=== PATIENT | male | born 1975 | race Caucasian/White ===

== ENCOUNTER → 2021-07-10 | Outpatient (CLI) | payer BC ==
--- NOTE | 2021-07-10 16:58 | REP ---
INDICATION: LUMBAGO. COMPARISON: Comparison MRI study of the lumbar spine is from March 06, 2019. TECHNIQUE: Sagittal and axial T1 and T2-weighted scans are acquired in the usual fashion with and without fat saturation. Sequences include spin echo, turbo spin-echo, and STIR imaging sequences. FINDINGS: Lumbar vertebral body heights are preserved. Alignment is normal. There is no evidence of spondylolysis or spondylolisthesis. The tip of the conus medullaris is normal in position and appearance at T12-L1. No extra vertebral abnormality is appreciated. Axial and sagittal images taken at the L1-2 disc level demonstrate mild diffuse disc bulging with a central annulus tear of the posterior disc margin. There is subtle indentation of the ventral margin of the thecal sac. These findings are unchanged. No spinal stenosis or foraminal narrowing is seen at L1-2. At L2-3, there is a small to moderate size right paracentral focal disc protrusion which is a new finding compared with the 2019 prior study. This compresses the right ventral margin of the thecal sac. No foraminal narrowing is seen. No overall central canal stenosis is seen. At L3-L4, there is a right paracentral focal disc protrusion also noted. This is also a new finding compared to the 2019 study. There is mild thecal sac compression. Canal size is borderline. There is minimal ligamentum flavum and facet hypertrophy bilaterally. No neural foraminal encroachment is seen at L3-4. At L4-5, there is minimal central disc bulging. Facet and ligamentum flavum hypertrophy are present. No foraminal narrowing or central canal stenosis is seen. The findings at L4-5 are stable. At L5-S1, there is facet hypertrophy bilaterally. A small central focal disc protrusion is evident effacing the ventral epidural fat but not visibly compressing the cord. This is unchanged. No neural foraminal narrowing is seen. IMPRESSION: Degenerative spondylosis changes. There are new focal disc protrusions to the right at L2-3 and at L3-4. <Electronically signed by Alexi Shaikh > 07/10/21 [id number]
== END ==
LOC: M PLAIMG 15:28
PROVIDERS: ATTEND Physician Assistant
DX: M54.41 Lumbago with sciatica, right side (principal); M47.896 Other spondylosis, lumbar region; M51.26 Other intervertebral disc displacement, lumbar region

== ENCOUNTER 2024-05-04 10:43 | Emergency (ER) | payer SELFPAY ==
[~2024-05-04] VITALS: Ht 182.9 cm; Wt 67.3 kg
[2024-05-04] MEDS: NORCO, ANEXSIA 5/325MG TABLET (HYDROcodone/ACETAMINOPHEN) PO ONE (13:54)
[2024-05-04 14:29] LABS: BASO % 0.4 % (0.0-1.0); EOS # 0.1 10^3/uL (0.0-0.5); EOS % 2.7 % (0.0-3.0); HEMATOCRIT 45.8 % (42.0-52.0); HEMOGLOBIN 15.2 g/dl (13.5-17.5); LYMPH # 1.4 10^3/uL (1.5-5.0); LYMPH % 26.4 % (24.0-44.0); MEAN CORPUSCULAR HEMOGLOBIN 30.5 pg (27.0-33.0); MEAN CORPUSCULAR HGB CONC 33.2 g/dl (32.0-36.5); MEAN CORPUSCULAR VOLUME 91.8 fl (80.0-96.0); MONO # 0.5 10^3/uL (0.0-0.8); MONO % 10.3 % (2.0-8.0); NEUTROPHILS # 3.1 10^3/uL (1.5-8.5); PLATELET COUNT, AUTOMATED 220 10^3/uL (150-450); RED BLOOD COUNT 4.99 10^6/uL (4.30-6.10); WHITE BLOOD COUNT 5.2 10^3/uL (4.0-10.0)
[2024-05-04 14:35] LABS: ERYTHROCYTE SEDIMENTATION RATE 2 mm/hr (0-15)
[2024-05-04] MEDS: methylPREDNISolone 125MG 2ML VIAL IV ONE (14:46)
[2024-05-04 14:59] LABS: C REACTIVE PROTEIN QUANTITATIV < 0.40 MG/DL (<1.0)
[2024-05-04 15:00] LABS: BLOOD UREA NITROGEN 13 MG/DL (9-23); CALCIUM LEVEL 9.4 MG/DL (8.5-10.1); CARBON DIOXIDE LEVEL 30 MMOL/L (20-31); CHLORIDE LEVEL 105 MMOL/L (98-107); CREATININE FOR GFR 0.76 MG/DL (0.70-1.30); GLOMERULAR FILTRATION RATE > 60.0 (>60); GLUCOSE, FASTING 93 MG/DL (60-100); POTASSIUM SERUM 4.7 MMOL/L (3.5-5.1); SODIUM LEVEL 140 MMOL/L (136-145)
[2024-05-04] MEDS: KETOROLAC 30 MG/ML 1ML VIAL IV ONE (16:11)
[2024-05-04] MEDS: diazePAM 10MG/2ML SYRINGE IV ONE (17:00)
[2024-05-04] MEDS: MORPHINE 4 MG/ML 1ML VIAL IV ONE (17:01)
[2024-05-04] MEDS ORDERED: PROHANCE 279.3MG/ML 15ML VIAL As Ordered ONE (17:03)
[2024-05-04 20:45] VITALS: BP 119/71; TEMP 96.2; O2SAT 98
[2024-05-04] MEDS ORDERED: LIDO5DIS41 TD (21:06)
[2024-05-04] MEDS ORDERED: METH-1165 PO (21:06)
[2024-05-04] MEDS ORDERED: PRED20TA PO (21:06)
[2024-05-04] MEDS ORDERED: HYDR-3713 PO (21:06)
== END 2024-05-04 21:20 | disposition home or self-care (01) ==
LOC: M ED 10:43
DX: M51.86 Other intervertebral disc disorders, lumbar region (principal); M51.36 Other intervertebral disc degeneration, lumbar region; M51.26 Other intervertebral disc displacement, lumbar region; M51.27 Other intervertebral disc displacement, lumbosacral region; M50.222 Other cervical disc displacement at C5-C6 level; M50.21 Other cervical disc displacement, high cervical region; M48.062 Spinal stenosis, lumbar region with neurogenic claudication; M47.896 Other spondylosis, lumbar region; M25.78 Osteophyte, vertebrae; G96.191 Perineural cyst; F10.10 Alcohol abuse, uncomplicated; Z79.1 Long term (current) use of non-steroidal anti-inflammatories (NSAID); Z79.52 Long term (current) use of systemic steroids; Z79.899 Other long term (current) drug therapy; Z88.0 Allergy status to penicillin; Y92.9 Unspecified place or not applicable; Y93.89 Activity, other specified; Y99.9 Unspecified external cause status
CPT/HCPCS: 72110; 72141; 72146; 72158; 80048; 85025; 85652; 86140; 96374; 96375; 99284; A9576; J1885; J2919; J3360